=== PATIENT | female | born 1980 | race Caucasian/White ===

== ENCOUNTER 2018-02-22 11:55 | Emergency (ER) | payer OTHER ==
[~2018-02-22] VITALS: Ht 170.2 cm; Wt 90.7 kg
[2018-02-22 12:01] VITALS: BP 117/77
--- NOTE | 2018-02-22 12:27 | ED SKIN/ALLERGY COMPLAINT ---
History of Present Illness General Chief Complaint: Upper Extremity Problem Stated Complaint: PT POSSIBLE CELLULITIS ON FOREARM Source: patient Exam Limitations: no limitations Vital Signs & Intake/Output Vital Signs & Intake/Output Vital Signs Date Time Temp Pulse Resp B/P B/P Pulse O2 O2 Flow FiO2 Mean Ox Delivery Rate 02/22 1201 96.4 91 20 117/77 97 Room Air Allergies Coded Allergies: bee pollen (ITCHING 02/22/18) pineapple (ITCHING 02/22/18) Reconcile Medications Hydroxyzine Hydrochloride (Atarax) 25 MG TAB 1 TAB PO Q6P PRN ITCHING Prednisone 10 MG TABLET 1 TAB PO DAILY DERMATITIS THEN TAKE 3 TABS FOR 3 DAYS THEN TAKE 2 TABS FOR 3 DAYS THEN TAKE 1 TAB FOR 3 DAYS Sulfamethoxazole/Trimethoprim (Bactrim Ds Tablet) 800 MG-160 MG TABLET 1 TAB PO BID CELLULITIS Triage Note: PT TO ED C/O RASH TO RIGHT FOREARM. STARTED SUNDAY, WAS GIVEN KENALOG CREAM AND KEFLEX. STATES IT IS WORSE AND NOW BLISTERING. AFEBERILE. Triage Nurses Notes Reviewed? yes : No Patient currently breastfeeds: No HPI: Patient developed an itchy rash in her right arm on Sunday. Patient started Kenalog cream. The area then became reddened. Patient went to a walk in center and they put her on Keflex and told her to stop the Kenalog and put her on an antibiotic cream. This morning she woke up and the area was very red and now she had the rash on her left arm as well. There is no pain. It is itching. There are no fevers or chills. 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 none Influenza Vaccine: 09/04/11 Tetanus Vaccine: 11/24/12 Surgical History Surgical History: non-contributory Psychosocial History What is your primary language Slovak Tobacco Use: Never used ETOH Use: denies use Illicit Drug Use: denies illicit drug use Family History Hx Contributory? No Review of Systems Review of Systems Constitutional: Reports: no symptoms. Respiratory: Reports: no symptoms. Cardiovascular: Reports: no symptoms. GI: Reports: no symptoms. Musculoskeletal: Reports: see HPI. Skin: Reports: see HPI. Neurological/Psychological: Reports: no symptoms. Immunologic/Allergic: Reports: no symptoms. Physical Exam Physical Exam General Appearance: well developed/nourished, alert, awake, mild distress Eyes: Bilateral: PERRL, EOMI. Respiratory: normal breath sounds, chest non-tender, no respiratory distress, lungs clear Cardiovascular: regular rate/rhythm, normal peripheral pulses Neurologic/Psych: no motor/sensory deficits, awake, alert, oriented x 3, normal gait, normal mood/affect Skin: rash Skin Problem Location: upper extremities Skin Problem Character: linear, papules Lymphatic: NO AXIALLRY LAD Progress Differential Diagnosis: abscess/cellulitis, contact dermatitis Plan of Care: Current Medications Sig/Sweetie Start time Last Medication Dose Stop Time Status Admin Ceftriaxone Sodium 1,000 MG ONCE ONE 02/22 1230 UNVr (Rocephin) 02/22 1231 Prednisone 60 MG ONCE ONE 02/22 1230 UNVr 02/22 1231 Departure Departure Disposition: HOME OR SELF CARE Condition: Stable Clinical Impression Primary Impression: Contact dermatitis Secondary Impressions: Cellulitis Referrals: Cheryl Osorio DO (PCP/Family) Additional Instructions: CONTINUE THE KEFLEX AND ADD BACTRIM TWICE A DAY TAKE PREDNSONE PRESCRIBED RETURN IF SYMPTOMS WORSENOR FOR ANY CONCERNS TAKE ATARAX NEEDED FOR ITCHING. IT MAYMAKE YOU SLEEPY SO DONOTDRIVE AFTER TAKING IT. Departure Forms: Customer Survey General Discharge Information Prescriptions: Current Visit Scripts Prednisone 1 TAB PO DAILY #18 TAB THEN TAKE 3 TABS FOR 3 DAYS THEN TAKE 2 TABS FOR 3 DAYS THEN TAKE 1 TAB FOR 3 DAYS Hydroxyzine Hydrochloride (Atarax) 1 TAB PO Q6P PRN ITCHING #20 TAB Sulfamethoxazole/Trimethoprim (Bactrim Ds Tablet) 1 TAB PO BID #20 TAB
[2018-02-22] MEDS ORDERED: PREDNISONE10 M2 PO (12:36)
[2018-02-22] MEDS ORDERED: BACTRIM DS TAB1 EACH PO (12:36)
[2018-02-22] MEDS ORDERED: HYDROXYZINE HCL25 M2 PO (12:36)
== END 2018-02-22 12:56 ==
LOC: ERH 11:55
DX: L03.113 Cellulitis of right upper limb (principal)
CPT/HCPCS: 96374; J0696

== ENCOUNTER 2018-02-25 12:59 | Inpatient (IN) | payer OTHER ==
[~2018-02-25] VITALS: Ht 172.7 cm; Wt 90.7 kg
[~2018-02-25 12:59] MED LIST: BACTRIM DS TAB1 EACH PO; HYDROXYZINE HCL25 M2 PO; PREDNISONE10 M2 PO
--- NOTE | 2018-02-25 16:05 | ED SKIN/ALLERGY COMPLAINT ---
History of Present Illness General Chief Complaint: General Adult Stated Complaint: CELLULITES INFECTION, SEEN HERE 02/22 FOR SAME Source: patient, family, old records Exam Limitations: no limitations Vital Signs & Intake/Output Vital Signs & Intake/Output Vital Signs Date Time Temp Pulse Resp B/P B/P Pulse O2 O2 Flow FiO2 Mean Ox Delivery Rate 02/25 1857 98.9 79 18 122/72 98 Room Air 02/25 1310 97.4 96 16 144/89 97 Room Air Allergies Coded Allergies: bee pollen (ITCHING 02/22/18) pineapple (ITCHING 02/22/18) Reconcile Medications Hydroxyzine Hydrochloride (Atarax) 25 MG TAB 1 TAB PO Q6P PRN ITCHING Prednisone 10 MG TABLET 1 TAB PO DAILY DERMATITIS THEN TAKE 3 TABS FOR 3 DAYS THEN TAKE 2 TABS FOR 3 DAYS THEN TAKE 1 TAB FOR 3 DAYS Sulfamethoxazole/Trimethoprim (Bactrim Ds Tablet) 800 MG-160 MG TABLET 1 TAB PO BID CELLULITIS Triage Note: PT TO ED FOR EVAL OF CELLULITIS. WAS SEEN HERE FOR THE SAME THE OTHER DAY AND PLACED ON ABX. STATES THAT SHE FEELS WORSE THAN THAT DAY AND NOW HAS FEVERS AT HOME. TEMP IN TRIAGE 97.4. TOOK IBUPROFEN THIS AM. WAS PUT ON BACTRIM ON SUNDAY, WELL KEFLEX FROM SUNDAY, AND PREDNISONE TAPER AND ATARAX. Triage Nurses Notes Reviewed? yes Onset: Gradual Duration: day(s): Timing: recent history Severity: moderate Location: right arm : No Patient currently breastfeeds: No HPI: 37YO FEMALE presents to ED complaining of worsening skin infection. PAtient was seen and evaluated here a few days ago for a itchy rash of right arm. She was taking Keflex at that time. She was started on prednisone, Bactrim, hydroxyzine and instructed to return if symptoms were worsening. Patient also received 1 dose of IV antibiotics at that time. Patient states that her symptoms have been increasing, redness around skin rashes also increased. Patient reports this morning she woke up with sweats, fever 101.2F at home. Patient also reporting general malaise. 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 Patient does report that she was exposed to impetigo recently. She denies abdominal pain, vomiting, diarrhea. Past History Travel History Traveled to [place] past 21 day No Medical History Any Pertinent Medical History? none Tetanus Vaccine: 11/24/12 Surgical History Surgical History: non-contributory Psychosocial History What is your primary language Hebrew Tobacco Use: Never used Family History Hx Contributory? No Review of Systems Review of Systems Constitutional: Reports: see HPI. EENTM: Reports: no symptoms. Respiratory: Reports: no symptoms. Cardiovascular: Reports: no symptoms. GI: Reports: no symptoms. Genitourinary: Reports: no symptoms. Musculoskeletal: Reports: no symptoms. Skin: Reports: see HPI. Neurological/Psychological: Reports: no symptoms. Hematologic/Endocrine: Reports: no symptoms. Immunologic/Allergic: Reports: no symptoms. All Other Systems: Reviewed and Negative Physical Exam Physical Exam General Appearance: well developed/nourished, no apparent distress, alert, awake Head: atraumatic, normal appearance Eyes: Bilateral: normal appearance. Ears, Nose, Throat: hearing grossly normal Neck: normal inspection, supple, full range of motion Respiratory: normal breath sounds, no respiratory distress, lungs clear Cardiovascular: regular rate/rhythm Back: normal inspection, normal range of motion Extremities: right arm: erythema to forearm and upper arm with oozing blisters/ bullae +warmth, slight tenderness Neurologic/Psych: awake, alert, oriented x 3 Skin: see right arm rash above Progress Differential Diagnosis: abscess/cellulitis, allergic reaction, contact dermatitis, drug reaction, erythema multiforme, shingles, toxic shock syndrome, urticaria Plan of Care: Orders Procedure Date/time Status Saline Lock 02/25 160 Active BLOOD CULTURE 02/25 160 Active LACTIC ACID 02/25 160 Complete COMPREHENSIVE METABOLIC PANEL 02/25 1605 Complete CBC WITHOUT DIFFERENTIAL 02/25 1605 Complete Current Medications Sig/Sweetie Start time Last Medication Dose Stop Time Status Admin Clindamycin 300 MG ONCE ONE 02/25 193 CAN (Cleocin) 02/25 1931 Clindamycin 300 MG ONCE ONE 02/25 193 AC (Cleocin) 02/25 1959 Dextrose/Water 50 ML (D5W) Laboratory Tests 02/25/18 1905: Lactic Acid Cancelled 02/25/18 1715: Anion Gap 15, Estimated GFR > 60, BUN/Creatinine Ratio 21.4, Glucose 112 H, Lactic Acid 1.4, Calcium 10.4 H, Total Bilirubin 0.5, AST 17, ALT 44, Alkaline Phosphatase 92, Total Protein 8.8 H, Albumin 5.1 H, Globulin 3.7, Albumin/ Globulin Ratio 1.4, CBC w Diff NO MAN DIFF REQ, RBC 5.64 H, MCV 75.5 L, MCH 25.0 L, MCHC 33.2, RDW 14.9 H, MPV 8.1, Gran % 85.9 H, Lymphocytes % 12.4 L, Monocytes % 1.1 L, Eosinophils % 0.5, Basophils % 0.1, Absolute Granulocytes 8.9 H, Absolute Lymphocytes 1.3, Absolute Monocytes 0.1, Absolute Eosinophils 0 , Absolute Basophils 0 Microbiology 02/25 1818 BLOOD: Blood Culture - RECD 02/25 1715 BLOOD: Blood Culture - RECD Dr. Romero present seen and evaluated the patient. Given patient's worsening rash despite use of steroids and antibiotics she requires inpatient admission for IV antibiotics or other medication. Dermatology consult is warranted given her abnormal rash. Case management recommended for admission. Dr. Reyes saw evaluated the patient. Departure Departure Disposition: STILL A PATIENT Condition: Stable Clinical Impression Primary Impression: Cellulitis Qualifiers: Site of cellulitis: extremity Site of cellulitis of extremity: upper extremity Laterality: right Qualified Code: L03.113 - Cellulitis of right upper limb Referrals: Cheryl Osorio DO (PCP/Family) Departure Forms: Customer Survey General Discharge Information Admission Note Spoke With: Florentin Reyes MD Documentation of Exam: Documentation of any treatments & extenuating circumstances including Concerns Regarding Discharge (functional status, medication knowledge or non-compliance, living conditions, etc.) that warrant an admission rather than observation: [ Cellulitis failed outpatient antibiotic treatment requiring possible IV antibiotics, dermatology consult, possible infectious disease consult, premature discharge medically unsafe]
[2018-02-25 17:26] LABS: ABSOLUTE BASOPHIL COUNT 0 /CUMM (0.0-0.2); ABSOLUTE EOSINOPHIL COUNT 0 /CUMM (0.0-0.7); ABSOLUTE GRANULOCYTE CT 8.9 /CUMM (1.4-6.5); ABSOLUTE LYMPH COUNT 1.3 /CUMM (1.2-3.4); ABSOLUTE MONOCYTE COUNT 0.1 /CUMM (0.10-0.60); BASOPHIL % 0.1 % (0.0-2.0); EOSINOPHIL % 0.5 % (0-5); HEMATOCRIT 42.6 % (37-47); MEAN CORPUSCULAR HGB CONC 33.2 G/DL (33.0-37.0); MEAN CORPUSCULAR VOLUME 75.5 FL (81.0-99.0); MEAN PLATELET VOLUME 8.1 FL (7.4-10.4); PLATELET COUNT 394 /CUMM (130-400); RBC DISTRIBUTION WIDTH 14.9 % (11.5-14.5); RED BLOOD CELL CT 5.64 /CUMM (4.20-5.40); WHITE BLOOD CELL COUNT 10.4 /CUMM (4.8-10.8)
[2018-02-25 17:29] LABS: GRANULOCYTE % 85.9 % (42.2-75.2)
--- NOTE | 2018-02-25 20:07 | History & Physical ---
Leopoldo Shannon 02/25/18 2006: General Information and HPI History of Present Illness: Ms. Wright is a 37-year-old female with a PMH of rosacea who presents to the ED with worsening cellulitis. Patient reports one week ago Sunday she noticed a pruritic rash on her right and left forearm. She used steroid cream without relief. By the following her right arm swelling and erythema worsened, blisters formed on her right forearm which prompted her to go to a walk-in clinic where she was prescribed cephalexin and mupirocin. She used ibuprofen for pain without relief. On Sunday there was no improvement in appearance so she went to the ED where she was prescribed Bactrim, hydroxyzine, steroids and given a dose of ceftriaxone. Today she reports she had a fever and recorded a temperature of 101. She was also fatigued and had a SEPULVEDA. She reports her son was recently treated with contact dermatitis. At home she has 2 dogs and 1 cat that are all up to date with severe vaccinations. 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 She denies recent travel, family history of autoimmune diseases, nausea, vomiting, paresthesias, numbness, urinary or bowel symptoms. Allergies/Medications Allergies: Coded Allergies: bee pollen (ITCHING 02/22/18) pineapple (ITCHING 02/22/18) Home Med list Hydroxyzine Hydrochloride (Atarax) 25 MG TAB 1 TAB PO Q6P PRN ITCHING Prednisone 10 MG TABLET 1 TAB PO DAILY DERMATITIS THEN TAKE 3 TABS FOR 3 DAYS THEN TAKE 2 TABS FOR 3 DAYS THEN TAKE 1 TAB FOR 3 DAYS Sulfamethoxazole/Trimethoprim (Bactrim Ds Tablet) 800 MG-160 MG TABLET 1 TAB PO BID CELLULITIS Past History Travel History Traveled to [place] past 21 day No Medical History Tetanus Vaccine: 11/24/12 Surgical History Surgical History: non-contributory Review of Systems Review of Systems Constitutional: Reports: see HPI. Exam & Diagnostic Data Last 24 Hrs of Vital Signs/I&O Vital Signs Date Time Temp Pulse Resp B/P B/P Pulse O2 O2 Flow FiO2 Mean Ox Delivery Rate 02/25 1857 98.9 79 18 122/72 98 Room Air 02/25 1310 97.4 96 16 144/89 97 Room Air Physical Exam General Appearance Alert, Oriented X3, Cooperative, No Acute Distress, facial flushing Skin left forearm erythematous macular lesion, right arm warmth, skin erythema and ruptured bulla without drainage HEENT Atraumatic, PERRLA, EOMI Neck Supple, No LAD Cardiovascular Regular Rate, Normal S1, Normal S2, No Murmurs Lungs Clear to Auscultation, Normal Air Movement Abdomen Normal Bowel Sounds, Soft, No Tenderness Extremities No Edema, Normal Pulses, No Tenderness/Swelling Last 24 Hrs of Labs/Justen: Laboratory Tests 02/25/18 1905: Lactic Acid Cancelled 02/25/18 1715: Anion Gap 15, Estimated GFR > 60, BUN/Creatinine Ratio 21.4, Glucose 112 H, Lactic Acid 1.4, Calcium 10.4 H, Total Bilirubin 0.5, AST 17, ALT 44, Alkaline Phosphatase 92, Total Protein 8.8 H, Albumin 5.1 H, Globulin 3.7, Albumin/ Globulin Ratio 1.4, CBC w Diff NO MAN DIFF REQ, RBC 5.64 H, MCV 75.5 L, MCH 25.0 L, MCHC 33.2, RDW 14.9 H, MPV 8.1, Gran % 85.9 H, Lymphocytes % 12.4 L, Monocytes % 1.1 L, Eosinophils % 0.5, Basophils % 0.1, Absolute Granulocytes 8.9 H, Absolute Lymphocytes 1.3, Absolute Monocytes 0.1, Absolute Eosinophils 0 , Absolute Basophils 0 Microbiology 02/25 1818 BLOOD: Blood Culture - RECD 02/25 1715 BLOOD: Blood Culture - RECD Assessment/Plan Assessment: Ms. Wright is a 37-year-old female with a PMH of rosacea who presents to the ED with worsening cellulitis. Problem list: Right arm cellulitis vs pemphigoid bullous disease vs VZV vs contact dermatitis Plan: Admit to general med for further evaluation and management IV cefazolin for strep coverage IV Vancomycin for MRSA coverage Benadryl for pruritus Blood cultures 2 NS IVF Avoid NSAIDs and steroids Consider VZV PCR ID consult Derm consult Diet: Regular DVT ppx: Enoxaparin Code: Full As Ranked By This Provider Problem List: 1. Cellulitis Qualifiers Site of cellulitis: extremity Site of cellulitis of extremity: upper extremity Laterality: right Qualified Code: L03.113 - Cellulitis of right upper limb Core Measures/Misc (07/22) Acute Coronary Syndrome ACS Diagnosis: No Congestive Heart Failure Congestive Heart Failure Diagnosis No Cerebrovascular Accident CVA/TIA Diagnosis: No VTE (View Protocol) VTE Risk Factors Acute Medical Illness No Mechanical VTE Prophylaxis d/t N/A MechProphylax Ordered No VTE Pharm Prophylaxis d/t NA PharmProphylax ordered Sepsis (View protocol) Sepsis Present: No Florentin Reyes 02/26/18 0341: Attending MD Review Statement Attending Statement Attending MD Statement: examined this patient, discuss w/resident/PA/SEARCH AND RESCUE OFFICER, agreed w/resident/PA/SEARCH AND RESCUE OFFICER, discussed with family, reviewed EMR data (avail), reviewed images, amended to note Attending Assessment/Plan: CC: Rash on right arm PMH: none Patient came to ER for nonhealing a rash on right upper extremity on medial aspect. The rash started approximately 9 days back, gradually worsening. She was seen at urgent care and was prescribed Keflex and mupirocin ointment. She also used steroid cream without relief. As her lesion worsened she came to ER on , then her Keflex was continued, she was started on Bactrim and prednisone. She has been compliant with all this medications and rash was not getting better so she came to ER. She has tingly sensation on the rash, soreness or pain but no worsening. She had fever of 101 today at home. She also complains of mild headache and fatigue but otherwise complete ROS unremarkable. She does not have similar rashes in the mouth, other body parts are in genital area. 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 No recent change in her daily routine including detergent, different clothes or ornaments. She has been using ibuprofen for headache once in a while. Most recent use within the last 15 days and today. Vitals: Temperature 98.9, pulse 96, RR 16, blood pressure 144/89, saturating 97% on room air. On exam: A O 3, cooperative, no acute distress, neck supple, JVD normal, no lymphadenopathy, mucosa moist, no focal neurological deficit, no dependent edema , CVS: S1-S2, RRR. RS: Clear to auscultate bilaterally. Abdomen: Soft, NT, ND, bowel sounds present. Right upper extremity has bolus lesions 2 in number on medial aspect one on the forearm is approximately 8 cm in diameter, flaccid bullae, mild redness, pain on touch and warmth but no obvious fluctuation. A smaller 3 cm diameter lesion on the arm area with similar features. She also has smaller rash on left antecubital fossa which is maculopapular Assessment and plan Patient has bullous skin lesions since last 8-9 days, gradually worsening, medial aspect of the right forearm. Given the bullous lesion it has a wide differential, herpes zoster, fixed drug reaction, autoimmune reactions with bullous pemphigoid or pemphigus vulgaris could be few possibilities. As patient is not getting better with empiric treatment with antibiotics, steroids she would benefit from skin biopsy. We will cover empirically with antibiotics for now for secondary infection. Will get ID in walled for possibility of herpes zoster, possibly bullous fluid PCR could be sent. We will get dermatology opinion + Bullous skin rash on right upper extremity - Admit to general medicine - Continue IV antibiotics - ID consult - Term consult - d/c steroids - Avoid NSAIDs - Supportive care with pain management and Claudia Madrid 02/26/18 0359: Resident Review Statement Resident Statement: examined this patient, discussed with nutrition internship, agreed with nutrition internship, discussed with family, amended to note Other Findings: 37-year-old lady with past medical history of gestational diabetes and rosacea came to the hospital with chief complaint of right forearm pain, blisters redness and swelling and fever. Patient reported that she noticed a small rash in her right forearm about 9 days ago which she treated with topical steroids which didn't get better and developed small blisters initially went to walk-in and prescribed Keflex but is still the redness and the blister did not improve and came to [facility] ED on last Sunday and at that point she was prescribed Bactrim and prednisone taper in addition to the Keflex. According to the patient to swelling and redness and blisters got worse and today before coming to the hospital she had a fever of 101 and feeling fatigued. Patient reports due to taking multiple antibiotics she has low appetite and mild nausea but no vomiting, diarrhea, constipation, shortness of breath, pain. She reports that she has another rash on the left antecubital area 2 x 2 centimeters and mildly itchy which did not change in color or size since 9 days ago.She denies recent travel, contact with any poison silvana. 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 She also reports taking Motrin for couple of days as well. No genital or Or ulcers. Labs in ED where remarkable for HCO3 of 21, glucose 112, calcium 10.4, RBC 5.64, MCV 75.5, WBC within normal limits. Physical exam she is alert and oriented Rosacea on the face and ears Chest clear bilaterally Heart S1 is normal, no murmurs Abdomen nontender No pedal edema Skin is notable for extensive Loyal colored patches with multiple blisters on right left arm and forearm, one small 2 x 2 centimeters darker red patch on the left antecubital area Patient has received IV clindamycin in the ED with Benadryl Assessment Redness and swelling with blister on the skin on the right arm and forearm( DDX, cellulitis with MRSA, pemphigoid spectrum diseases, VZV, Other autoimmune diseases,drug reaction, allergic reaction to bite) History of rosacea Plan Admit to general medicine floor Liang the margins of the lesion Blood cultures 2 and watch for fevers IV Benadryl for itching when necessary We will give 1 dose of vancomycin and also continue the patient on IV cefazolin No NSAIDs or steroids ID consultation in the morning VZV PCR is recommended if approved by ID One bag of normal saline for IV hydration Full code, DVT prophylaxis is mechanical and sub Q Lovenox, Tylenol for pain, regular diet
[2018-02-25 22:45] VITALS: BP 118/80
--- NOTE | 2018-02-26 03:43 | Admission Certification ---
Admission Certification Certification Statement - As attending physician, I certify that at the time of - admission, based on clinical presentation, severity of - symptoms, need for further diagnostic testing and - therapeutic interventions, and risk of adverse outcomes - without in-hospital treatment, in my clinical assessment, - this patient requires an acute hospital stay for a minimum - of two nights or longer. I have also considered psychsocial - factors such as support system, advanced age, financial - issues, cognitive issues, and failed out-patient treatments, - past re-admission history, safety of patient, and lack of - compliance as applicable. Specific rationale supporting this admission is: Bullous skin lesion
[2018-02-26 07:22] VITALS: BP 114/67
--- NOTE | 2018-02-26 08:04 | PN- Housestaff ---
Jessie Morton 02/26/18 0804: Subjective Follow-up For: Right arm skin rash with bullae Subjective: The patient was seen and examined. Her skin rash with blisters occured approximately 10 days prior to admission. Has visited ED 2 times prior to presentation and was given prednuisone and ABs. Review of Systems Constitutional: Denies: chills, diaphoresis, fever, malaise, weakness, unexplained weight loss. Objective Last 24 Hrs of Vital Signs/I&O Vital Signs Date Time Temp Pulse Resp B/P B/P Pulse O2 O2 Flow FiO2 Mean Ox Delivery Rate 02/26 0722 98.0 76 20 114/67 99 Room Air 02/25 2245 98.2 77 18 118/80 96 Room Air 02/25 2148 98.2 68 18 112/68 97 Room Air 02/25 1857 98.9 79 18 122/72 98 Room Air Intake & Output 02/26 1600 02/26 0800 02/26 0000 Intake Total 240 1000 Output Total Balance 240 1000 Intake, IV 1000 Intake, Oral 240 Patient 200 lb Weight Weight Reported by Patient Measurement Method Physical Exam General Appearance: Alert, Oriented X3, Cooperative, No Acute Distress Other Physical Findings: Skin: 5 cm left forearm erythematous macular lesion, right arm warmth, skin erythema and ruptured bulla without drainage approx 15 cm, area boland been marked o admission HEENT Atraumatic, PERRLA, EOMI Neck Supple, No LAD Cardiovascular Regular Rate, Normal S1, Normal S2, No Murmurs Lungs Clear to Auscultation, Normal Air Movement Abdomen Normal Bowel Sounds, Soft, No Tenderness Extremities No Edema, Normal Pulses, No Tenderness/Swelling Current Medications: Current Medications Sig/Sweetie Start time Last Medication Dose Route Stop Time Status Admin Acetaminophen 0 .STK-MED ONE 02/26 2224 DC PO Acetaminophen 650 MG Q6P PRN 02/25 2115 AC PO Acetaminophen 0 .STK-MED ONE 02/25 2103 DC PO Ampicillin Sodium/ 1,500 MG Q6 02/26 1200 AC 02/26 Sulbactam Sodium IV 1236 Sodium Chloride 100 ML Cefazolin Sodium 1,000 MG IQ8 02/26 0000 DC 02/26 IV 0830 Clindamycin 300 MG ONCE ONE 02/25 1930 CAN IV 02/25 193 Clindamycin 300 MG ONCE ONE 02/25 1930 DC 02/25 Dextrose/Water 50 ML IV 02/25 Clobetasol Propionate 1 HIRAL BID 02/26 1317 UNVr TOP Diphenhydramine HCl 50 MG Q6P PRN 02/25 2300 AC 02/26 IV 0559 Diphenhydramine HCl 0 .STK-MED ONE 02/26 1916 DC .ROUTE Diphenhydramine HCl 25 MG ONCE ONE 02/25 1900 DC 02/25 IV 02/25 Enoxaparin Sodium 40 MG DAILY 02/26 09 DC SC Sodium Chloride 1,000 ML BOLUS ONE 02/25 2015 DC 02/25 IV 02/25 Vancomycin HCl 1,000 MG ONCE ONE 02/25 2300 DC 02/26 Sodium Chloride 250 ML IV 02/25 2359 0107 Last 24 Hrs of Lab/Justen Results Last 24 Hrs of Labs/Mics: Laboratory Tests 02/26/18 0748: Anion Gap 11, Estimated GFR > 60, BUN/Creatinine Ratio 17.5, CBC w Diff NO MAN DIFF REQ, RBC 4.67, MCV 76.0 L, MCH 25.1 L, MCHC 33.0, RDW 14.6 H, MPV 8.0, Gran % 59.4, Lymphocytes % 27.3, Monocytes % 6.8, Eosinophils % 5.9 H, Basophils % 0.6, Absolute Granulocytes 5.4, Absolute Lymphocytes 2.5, Absolute Monocytes 0.6, Absolute Eosinophils 0.5, Absolute Basophils 0.1 02/26/18 0600: Lyme Disease Antibody Pending 02/25/18 1905: Lactic Acid Cancelled 02/25/18 1715: Anion Gap 15, Estimated GFR > 60, BUN/Creatinine Ratio 21.4, Glucose 112 H, Lactic Acid 1.4, Calcium 10.4 H, Total Bilirubin 0.5, AST 17, ALT 44, Alkaline Phosphatase 92, Total Protein 8.8 H, Albumin 5.1 H, Globulin 3.7, Albumin/ Globulin Ratio 1.4, CBC w Diff NO MAN DIFF REQ, RBC 5.64 H, MCV 75.5 L, MCH 25.0 L, MCHC 33.2, RDW 14.9 H, MPV 8.1, Gran % 85.9 H, Lymphocytes % 12.4 L, Monocytes % 1.1 L, Eosinophils % 0.5, Basophils % 0.1, Absolute Granulocytes 8.9 H, Absolute Lymphocytes 1.3, Absolute Monocytes 0.1, Absolute Eosinophils 0 , Absolute Basophils 0 Microbiology 02/25 1818 BLOOD: Blood Culture - RES 02/25 1715 BLOOD: Blood Culture - RES Assessment/Plan Assessment: This is a 37-year-old lady with past medical history of gestational diabetes and rosacea came to the hospital with chief complaint of right forearm pain, blisters redness and swelling and fever. Problem list: #Skin lesion with bullae; likely allergic reaction(contact dermatitis), other DDX include: cellulitis with MRSA, pemphigoid spectrum diseases, VZV, lyme(less likely) Plan * Follow Blood cultures 2 and watch for fevers * IV Benadryl for itching when necessary * 1 dose of vancomycin was given in the ED the patient was started on cefazolin. ID recommends to change antibiotic to Unasyn. * No NSAIDs or steroids * VZV PCR is recommended if approved by ID * Dermatology suggests that this is likely an allergic reaction/ contact dermatitis reaction recommending clobetasol twice a day and a skin biopsy * Call surgical consult for skin biopsy * DVT prophylaxis with alps; patient preference and also she is probably going to be scheduled for biopsy * Patient is full code Problem List: 1. Contact dermatitis Pain Ratin Pain Location: NA Pain Goal: Remain pain free Pain Plan: NA Tomorrow's Labs & Rationales: Fransico Teague MD 02/26/18 1259: Attending MD Review Statement Attending Statement Attending MD Statement: examined this patient, discuss w/resident/PA/VICE PRESIDENT OF NEWS, agreed w/resident/PA/VICE PRESIDENT OF NEWS, discussed with family, reviewed EMR data (avail), discussed with nursing, discussed with case mgmt, amended to note Attending Assessment/Plan: The patient was seen and discussed with house staff, nursing, case management, and family (). Dr. Zambrano examined in our presence. Still unclear if rash is infection vs inflammatory process. May represent contact dermatitis. As per ID will change Abx to Unasyn. Check Lyme titer. Dermatology input requested.
[2018-02-26 08:42] LABS: ABSOLUTE GRANULOCYTE CT 5.4 /CUMM (1.4-6.5); ABSOLUTE LYMPH COUNT 2.5 /CUMM (1.2-3.4); ABSOLUTE MONOCYTE COUNT 0.6 /CUMM (0.10-0.60); WHITE BLOOD CELL COUNT 9.1 /CUMM (4.8-10.8)
[2018-02-26 09:06] LABS: ABSOLUTE BASOPHIL COUNT 0.1 /CUMM (0.0-0.2); ABSOLUTE EOSINOPHIL COUNT 0.5 /CUMM (0.0-0.7); BASOPHIL % 0.6 % (0.0-2.0); EOSINOPHIL % 5.9 % (0-5); GRANULOCYTE % 59.4 % (42.2-75.2); MEAN CORPUSCULAR HGB 25.1 PG (27.0-31.0); PLATELET COUNT 307 /CUMM (130-400); RBC DISTRIBUTION WIDTH 14.6 % (11.5-14.5); RED BLOOD CELL CT 4.67 /CUMM (4.20-5.40)
[2018-02-26 09:09] LABS: HEMATOCRIT 35.5 % (37-47)
[2018-02-26 14:07] VITALS: BP 120/70
--- NOTE | 2018-02-26 15:58 | Procedure ---
Minor Surgical Procedure Note Date of Procedure: 02/26/18 Procedure Note: PUNCH BIOPSY WAS REQUESTED BY MEDICAL TEAM FOR RASH/BLISTERS ON PT RIGHT ARM. AREA WAS PREPPED WITH CHLORAPREP AND DRAPPED WITH STERILE TOWELS IN STERILE FASHION. 3CC 1% LIDOCAINE WITH EPI WAS INJECTED INTO RIGHT LOWER EXTREMITY, ONCE AREA WAS NUMB PUNCH BIPSY WAS PERFORMED AND EXCISED SKIN WAS PLACED IN SPECIMEN CUP AND SENT TO PATHOLOGY. PRESSURE WAS HELD TO THE OP SITE UNTIL HEMOSTASIS WAS ACHIEVED. CLEAN STERILE DRESSING WAS APPLIED. PT TOLERATED THE PROCEDURE WELL.
[2018-02-26 17:00] VITALS: BP 116/68
[2018-02-26 21:38] VITALS: BP 122/80
[2018-02-27 06:46] VITALS: BP 98/67
--- NOTE | 2018-02-27 08:42 | PN- Housestaff ---
See Addendum Amos RODRIGUEZ,Jerod 02/27/18 0842: Subjective Follow-up For: right arm rash Complaints: new generalized rash over her b/l upper limbs Subjective: I followed up the patient today. She is resting comfortably in her bed, not in distress, but complaints of a new generalized erythema over her b/l upper extermities. Her itching is controlled with IV Benadryl. Abx switched to IV Unasyn yesterday. No fever, chills, but no relief of rash either. No nursing issues reported to me overnight. VSS otherwise. Review of Systems Constitutional: Reports: see HPI. Objective Last 24 Hrs of Vital Signs/I&O Vital Signs Date Time Temp Pulse Resp B/P B/P Pulse O2 O2 Flow FiO2 Mean Ox Delivery Rate 02/27 1429 97.8 88 20 122/67 98 Room Air 02/27 0646 98.2 79 20 98/67 97 02/26 2138 98.9 95 18 122/80 95 Room Air 02/26 1700 98.2 90 24 116/68 99 Room Air Intake & Output 02/27 1600 02/27 0800 02/27 0000 Intake Total 740 350 350 Output Total Balance 740 350 350 Intake, IV 230 Intake, Oral 740 120 350 Number 0 Bowel Movements Physical Exam General Appearance: Alert, Oriented X3, Cooperative, No Acute Distress Other Physical Findings: Skin: - Lesion over inner/medial aspect of Right forearm/elbow area: bulla has ruptured, with surrounding erythema present, initial erythema has spread beyond the margin made from surgical pen initially in the ED. Dressed. - Lesion over the left anticubital area: small area abt <1 in sq erythema with a bleb ~2x2 mm over the medial aspect of the lesion. - New rash over b/l extremities, which appears to spare the lesion over the Left anticubital area by ~1 inch. Not itchy, no ulceration or induration- generalized erythema. 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 HEENT Atraumatic, PERRLA, EOMI Neck Supple, No LAD Cardiovascular Regular Rate, Normal S1, Normal S2, No Murmurs Lungs Clear to Auscultation, Normal Air Movement Abdomen Normal Bowel Sounds, Soft, No Tenderness Extremities No Edema, Normal Pulses, No Tenderness/Swelling Current Medications: Current Medications Sig/Sweetie Start time Last Medication Dose Route Stop Time Status Admin Acetaminophen 650 MG .STK-MED ONE 02/27 0136 DC PO 02/27 0137 Acetaminophen 650 MG .STK-MED ONE 02/26 1635 DC PO 02/26 1636 Acetaminophen 650 MG Q6P PRN 02/25 2115 AC 02/27 PO 0138 Ampicillin Sodium/ 1,500 MG Q6 02/26 1200 AC 02/27 Sulbactam Sodium IV 1200 Sodium Chloride 100 ML Clobetasol Propionate 1 HIRAL BID 02/26 1317 AC 02/27 TOP 0851 Diphenhydramine HCl 50 MG Q6P PRN 02/25 2300 AC 02/27 IV 1305 Lactobacillus 1 CAP BID 02/27 1329 AC 02/27 Acidophilus PO 1500 Nystatin 1 HIRAL BID 02/27 1338 AC 02/27 TOP 1538 Oxycodone/ 1 TAB Q6P PRN 02/27 0845 AC Acetaminophen PO Patient Medication 1 ED ONE ONE 02/27 1100 SC 02/27 Teaching ED 02/27 1101 1100 Patient Medication 1 ED ONE ONE 02/26 1700 SC Teaching ED 02/26 1701 Last 24 Hrs of Lab/Justen Results Last 24 Hrs of Labs/Mics: Laboratory Tests 02/27/18 0730: Anion Gap 12, Estimated GFR > 60, BUN/Creatinine Ratio 15.7, CBC w Diff NO MAN DIFF REQ, RBC 4.65, MCV 75.7 L, MCH 25.4 L, MCHC 33.6, RDW 14.5, MPV 7.8, Gran % 76.1 H, Lymphocytes % 12.1 L, Monocytes % 5.9, Eosinophils % 5.5 H, Basophils % 0.4, Absolute Granulocytes 7.1 H, Absolute Lymphocytes 1.1 L, Absolute Monocytes 0.5, Absolute Eosinophils 0.5, Absolute Basophils 0 Assessment/Plan Assessment: 37-year-old lady with past medical history of gestational diabetes and rosacea came to the hospital with chief complaint of right forearm pain, blisters redness and swelling and fever. She had visited urgent care and then ED for the same complaint in the last week. She was [facility], and later visited ED who prescribed her antibiotics. She was not getting any better which brought her to the ED and got admitted. She has received IV anx so far, and yesterday underwent a punch biopsy of the lesiuon by the surgical team. She has a new rash all over her upper extremities. Problem list: #Skin lesion with bullae; likely allergic reaction(contact dermatitis), other DDX include: cellulitis, pemphigoid spectrum diseases, VZV, lyme(less likely) Plan * Continue gen med admission while closely following skin changes and vitals. * Follow Blood cultures 2 and watch for fever * continue IV abx (CTX and Flagyl) but if still febrile re-send cultures and start Ceftazidime as the initial culture results are GNR, pending full report * IV Benadryl for itching when necessary, helping * 1 dose of vancomycin was given in the ED the patient was started on cefazolin. ID recommended to change antibiotic to Unasyn. * VZV PCR is recommended if approved by ID * Dermatology consult placed again, discussed with Dr Jaime. He suggested that this is likely an allergic reaction/ contact dermatitis reaction and had recommended clobetasol twice a day which was started yesterday * Wait for skin biopsy results, try getting prelim report if possible * DVT prophylaxis with alps * Patient is full code Problem List: 1. Cellulitis 2. Contact dermatitis Pain Ratin Pain Location: headache 2/10 constant Pain Goal: Pain 4 or less Pain Plan: prn Tomorrow's Labs & Rationales: CBC, BEP Fransico Arrieta MD 02/27/181927: Attending MD Review Statement Attending Statement Attending MD Statement: examined this patient, discuss w/resident/PA/FOOD EQUIPMENT SERVICE TECHNICIAN, agreed w/resident/PA/FOOD EQUIPMENT SERVICE TECHNICIAN, discussed with family, reviewed EMR data (avail), discussed with nursing, discussed with case mgmt, amended to note Attending Assessment/Plan: The patient continues to have bullous rash on UE (now bullae have burst). New more confluent rash on shoulders that is non-pruritic and non-tender. On Unasyn. No fever. Spoke with ID, Dermatology and Pathology. Both ID and Derm will re- evaluate in morning and preliminary biopsy should be reviewed in morning by Pathology. Will continue Unasyn at present pending above. Note the patient continues with some eosinophilia suggesting allergy/drug reaction?
[2018-02-27 08:45] LABS: ABSOLUTE BASOPHIL COUNT 0 /CUMM (0.0-0.2); ABSOLUTE EOSINOPHIL COUNT 0.5 /CUMM (0.0-0.7); ABSOLUTE GRANULOCYTE CT 7.1 /CUMM (1.4-6.5); ABSOLUTE LYMPH COUNT 1.1 /CUMM (1.2-3.4); ABSOLUTE MONOCYTE COUNT 0.5 /CUMM (0.10-0.60); BASOPHIL % 0.4 % (0.0-2.0); EOSINOPHIL % 5.5 % (0-5); GRANULOCYTE % 76.1 % (42.2-75.2); HEMATOCRIT 35.2 % (37-47); MEAN CORPUSCULAR HGB 25.4 PG (27.0-31.0); MEAN CORPUSCULAR HGB CONC 33.6 G/DL (33.0-37.0); MEAN CORPUSCULAR VOLUME 75.7 FL (81.0-99.0); MEAN PLATELET VOLUME 7.8 FL (7.4-10.4); PLATELET COUNT 274 /CUMM (130-400); RBC DISTRIBUTION WIDTH 14.5 % (11.5-14.5); RED BLOOD CELL CT 4.65 /CUMM (4.20-5.40); WHITE BLOOD CELL COUNT 9.4 /CUMM (4.8-10.8)
[2018-02-27 14:29] VITALS: BP 122/67
[2018-02-27 22:34] VITALS: BP 142/88
[2018-02-28 06:30] VITALS: BP 120/85
--- NOTE | 2018-02-28 07:43 | PN- Housestaff ---
Amos RODRIGUEZ,Jerod 02/28/18 0742: Subjective Follow-up For: right arm rash, failure of outpatient steroid and abx therapy Complaints: rash is better today Subjective: I followed up the patient today. She is resting comfortably in her bed, not in distress, and mentions that her rash is better today. [employer] Humanities Teacher at bedside too, who agreed witht he findings and discussed the case with us (patient and me ). She is still on IV Unasyn, IV Benadryl, and topical Clobetasol. No fever, chills , and her headache is much controlled now. No nursing issues reported to me overnight. VSS otherwise. Review of Systems Constitutional: Reports: see HPI. Objective Last 24 Hrs of Vital Signs/I&O Vital Signs Date Time Temp Pulse Resp B/P B/P Pulse O2 O2 Flow FiO2 Mean Ox Delivery Rate 02/27 2234 98.3 71 18 142/88 98 Room Air 02/27 1429 97.8 88 20 122/67 98 Room Air Intake & Output 02/28 0800 02/28 0000 02/27 1600 Intake Total 700 730 740 Output Total Balance 700 730 740 Intake, IV 220 250 Intake, Oral 480 480 740 Number 0 0 0 Bowel Movements Physical Exam General Appearance: Alert, Oriented X3, Cooperative, No Acute Distress, obese Other Physical Findings: Skin: - Lesion over inner/medial aspect of Right forearm/elbow area: lesion is much better today, rupured bulla is drying up, no oozing, surrounding erythema is also receding compared to yesterday, less itchy; total area of erytema is ~20x15 cm; Dressed. - Lesion over the left anticubital area: small area abt <1 in sq erythema with a bleb ~2x2 mm over the medial aspect of the lesion. Better today. Possile "id" lesion. - yesterday's new generalized rash over b/l extremities, appears better and subsiding. 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 HEENT Atraumatic, PERRLA, EOMI Neck Supple, No LAD Cardiovascular Regular Rate, Normal S1, Normal S2, No Murmurs Lungs Clear to Auscultation, Normal Air Movement Abdomen Normal Bowel Sounds, Soft, No Tenderness Extremities No Edema, Normal Pulses, No Tenderness/Swelling Current Medications: Current Medications Sig/Sweetie Start time Last Medication Dose Route Stop Time Status Admin Acetaminophen 650 MG .STK-MED ONE 02/27 1804 DC PO 02/27 180 Acetaminophen 650 MG Q6P PRN 02/25 2115 AC 02/27 PO 1819 Ampicillin Sodium/ 1,500 MG Q6 02/26 1200 AC 02/28 Sulbactam Sodium IV 0619 Sodium Chloride 100 ML Clobetasol Propionate 1 HIRAL BID 02/26 1317 AC 02/28 TOP 0734 Diphenhydramine HCl 50 MG Q6P PRN 02/25 2300 AC 02/28 IV 0331 Lactobacillus 1 CAP BID 02/27 1329 AC 02/27 Acidophilus PO 204 Nystatin 1 HIRAL BID 02/27 1338 AC 02/27 TOP 204 Oxycodone/ 1 TAB Q6P PRN 02/27 0845 AC Acetaminophen PO Patient Medication 1 ED ONE ONE 02/27 1100 DC 02/27 Teaching ED 02/27 1101 1100 Last 24 Hrs of Lab/Justen Results Last 24 Hrs of Labs/Mics: Laboratory Tests 02/28/18 0705: Anion Gap 10, Estimated GFR > 60, BUN/Creatinine Ratio 18.6, CBC w Diff NO MAN DIFF REQ, RBC 4.78, MCV 76.1 L, MCH 25.1 L, MCHC 33.0, RDW 14.5, MPV 7.7, Gran % 67.1, Lymphocytes % 19.7 L, Monocytes % 6.0, Eosinophils % 6.8 H, Basophils % 0.4, Absolute Granulocytes 6.0, Absolute Lymphocytes 1.8, Absolute Monocytes 0.5, Absolute Eosinophils 0.6, Absolute Basophils 0 Assessment/Plan Assessment: 37-year-old lady with past medical history of gestational diabetes and rosacea came to the hospital with chief complaint of right forearm pain, blisters redness and swelling and fever. She had visited urgent care and then ED for the same complaint in the last week. She was [facility], and later visited ED who prescribed her antibiotics. She was not getting any better which brought her to the ED and got admitted. She has received IV abx so far, and has undergone a punch biopsy of the lesiuon by the surgical team (results pending). Her arm rashes seem to be subsiding today, and her generalized rash appear to be better too. Problem list: #Skin lesion with bullae; likely allergic reaction (allergic contact dermatitis) , other DDx include: cellulitis, pemphigoid spectrum diseases, VZV, lyme (less likely) Plan * Continue gen med admission while closely following skin changes and vitals. * Follow Blood cultures 2 and watch for fever * Continue IV abx (Unasyn), pending final report * IV Benadryl for itching when necessary, helping * Patient has received multiple abx so far, and one of the differentials have been drug eruption as well. Will watch closely on that. * Dermatology follow up today mentioned to continue with Clobetasol, as she might have been allergic to Triamcinolone group of steroids. Continue abx for now to just to cover for secondary infections. Abx therapy to be guided by ID service. * Wait for skin biopsy results, try getting prelim report if possible * DVT prophylaxis with alps * Patient is full code Update: She had a maculo-papular rash over her torso which was itchy later during the day, the pictures of which was sent to the strategic partner development manager Dr Jaime with patient's permission and also discussed with Dr Arrieta. This looks like a drug rash and the fact that we are stopping her abx will help it and she can use clobetasol over the rash as well. Benadryl prescribed for itching sensation and rash. Claritin prescribed to be taken in the morning for the same, to avoid sedation. Problem List: 1. Contact dermatitis 2. Cellulitis Pain Ratin Pain Location: headache Pain Goal: Pain 4 or less Pain Plan: prn Tomorrow's Labs & Rationales: - Fransico Arrieta MD 02/28/18 2203: Attending Review Statement Attending Statement Attending Statement: examined this patient, discuss w/resident/PA/TEACHER COUNSELOR, agreed w/resident/PA/TEACHER COUNSELOR, discussed with family, reviewed EMR data (avail), discussed with nursing, discussed with case mgmt, amended to note Attending Assessment/Plan: The patient was seen and discussed with house staff, nursing, and case management. Does have pruritic maculopapular rash that appears to be drug reaction (?Unasyn). Responding to benadryl. ID, Dermatology and Pathology input appreciated. Path suggests contact dermatitis (final will be available once processed at [place]). OK to discharge to home today with steroid cream, claritin, and benadryl. Will have follow-up with Dermatology as OP. Will not send home on antibiotics.
[2018-02-28 08:16] LABS: ABSOLUTE BASOPHIL COUNT 0 /CUMM (0.0-0.2); ABSOLUTE EOSINOPHIL COUNT 0.6 /CUMM (0.0-0.7); ABSOLUTE LYMPH COUNT 1.8 /CUMM (1.2-3.4); ABSOLUTE MONOCYTE COUNT 0.5 /CUMM (0.10-0.60); BASOPHIL % 0.4 % (0.0-2.0); EOSINOPHIL % 6.8 % (0-5); GRANULOCYTE % 67.1 % (42.2-75.2); HEMATOCRIT 36.4 % (37-47); MEAN CORPUSCULAR HGB 25.1 PG (27.0-31.0); MEAN CORPUSCULAR VOLUME 76.1 FL (81.0-99.0); MEAN PLATELET VOLUME 7.7 FL (7.4-10.4); PLATELET COUNT 291 /CUMM (130-400); RBC DISTRIBUTION WIDTH 14.5 % (11.5-14.5); RED BLOOD CELL CT 4.78 /CUMM (4.20-5.40)
--- NOTE | 2018-02-28 10:37 | Cons- Infect Disease ---
General Information and HPI Consulting Request Date of Consult: 02/28/18 Requested By: Fransico Arrieta MD Reason for Consult: Rule out cellulitis Source of Information: patient, family, old records History of Present Illness: This is a 37-year-old woman with a history of rosacea, who developed a pruritic rash on her right forearm and left antecubital area 1 week prior to admission, treated with steroid cream without relief, with the development of blisters on the right forearm, treated with Keflex at a walk-in clinic 4 days prior to admission without improvement, seen in the emergency room 3 days prior to admission with persistent symptoms, found to be afebrile, given Ceftriaxone and discharged on prednisone and Bactrim, admitted on February 25 after returning to the emergency room with a fever of 101, associated with headache and fatigue. On admission she was afebrile. Laboratory data revealed a white blood cell count of 10,000, BUN/creatinine 15 and 0.7, with normal liver enzymes. She was given Vancomycin, Cefazolin and Clindamycin but was changed to Unasyn on the next today. She did undergo a skin biopsy on her right upper extremity on February 27. She has remained afebrile and her white blood cell count has remained normal since admission. She developed a pruritic rash on her back and left upper extremity on February 27 but her right upper extremity rash has improved. She does not report any tick bites and reports no new exposures prior to the onset of the rash. Of note her son was recently treated for contact dermatitis. Allergies/Medications Allergies: Coded Allergies: bee pollen (ITCHING 02/22/18) pineapple (ITCHING 02/22/18) Home Med List: Hydroxyzine Hydrochloride (Atarax) 25 MG TAB 1 TAB PO Q6P PRN ITCHING Prednisone 10 MG TABLET 1 TAB PO DAILY DERMATITIS THEN TAKE 3 TABS FOR 3 DAYS THEN TAKE 2 TABS FOR 3 DAYS THEN TAKE 1 TAB FOR 3 DAYS Sulfamethoxazole/Trimethoprim (Bactrim Ds Tablet) 800 MG-160 MG TABLET 1 TAB PO BID CELLULITIS Past History Travel History Traveled to [place] past 21 day No Medical History Blood Transfusion Hx: No Neurological: NONE EENT: NONE Cardiovascular: NONE Respiratory: NONE Gastrointestinal: NONE Hepatic: NONE Renal: NONE Musculoskeletal: NONE Psychiatric: NONE Endocrine: NONE Blood Disorders: NONE Cancer(s): NONE 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 Home Smoking Status: Never Smoked Review of Systems Review of Systems All Other Systems: Reviewed and Negative Exam & Diagnostic Data Last 24 Hrs of Vital Signs/I&O Vital Signs Date Time Temp Pulse Resp B/P B/P Pulse O2 O2 Flow FiO2 Mean Ox Delivery Rate 02/28 0630 97.6 78 20 120/85 98 Room Air 02/27 2234 98.3 71 18 142/88 98 Room Air 02/27 1429 97.8 88 20 122/67 98 Room Air Intake & Output 02/28 1600 02/28 0800 02/28 0000 Intake Total 700 730 Output Total Balance 700 730 Intake, IV 220 250 Intake, Oral 480 480 Number 0 0 Bowel Movements Physical Exam Other Physical Findings: She is awake and alert in no acute distress. She is afebrile. Skin reveals rosacea on her face; mild erythema over the upper chest; a blotchy rash on her back; left antecubital patch with surrounding erythema; right upper extremity with 2 separate areas of ruptured bullae with mild surrounding erythema. HEENT exam is negative. Neck is supple with no adenopathy. Lungs are clear. Heart regular rhythm with no murmur. Abdomen is soft, nontender with positive bowel sounds. Back no CVA tenderness. Extremities no cyanosis, clubbing or edema. Neuro is without focality. Last 24 Hours of Lab Results: Laboratory Tests 02/28 0705 Chemistry Sodium (137 - 145 mmol/L) 139 Potassium (3.5 - 5.1 mmol/L) 4.2 Chloride (98 - 107 mmol/L) 106 Carbon Dioxide (22 - 30 mmol/L) 24 Anion Gap (5 - 16) 10 BUN (7 - 17 mg/dL) 13 Creatinine (0.5 - 1.0 mg/dL) 0.7 Estimated GFR (>60 ml/min) > 60 BUN/Creatinine Ratio (7 - 25 %) 18.6 Hematology CBC w Diff NO MAN DIFF REQ WBC (4.8 - 10.8 /CUMM) 9.0 RBC (4.20 - 5.40 /CUMM) 4.78 Hgb (12.0 - 16.0 G/DL) 12.0 Hct (37 - 47 %) 36.4 L MCV (81.0 - 99.0 FL) 76.1 L MCH (27.0 - 31.0 PG) 25.1 L MCHC (33.0 - 37.0 G/DL) 33.0 RDW (11.5 - 14.5 %) 14.5 Plt Count (130 - 400 /CUMM) 291 MPV (7.4 - 10.4 FL) 7.7 Gran % (42.2 - 75.2 %) 67.1 Lymphocytes % (20.5 - 51.1 %) 19.7 L Monocytes % (1.7 - 9.3 %) 6.0 Eosinophils % (0 - 5 %) 6.8 H Basophils % (0.0 - 2.0 %) 0.4 Absolute Granulocytes (1.4 - 6.5 /CUMM) 6.0 Absolute Lymphocytes (1.2 - 3.4 /CUMM) 1.8 Absolute Monocytes (0.10 - 0.60 /CUMM) 0.5 Absolute Eosinophils (0.0 - 0.7 /CUMM) 0.6 Absolute Basophils (0.0 - 0.2 /CUMM) 0 Last 24 Hours of Justen Results: Blood cultures 2 February 25 negative Assessment/Plan Assessment/Plan Impression: This is a 37-year-old woman with a history of rosacea, admitted on February 25 with a pruritic bullous rash, primarily on her right forearm, not responsive to empiric antibiotics and a steroid cream as an outpatient, found on admission to be afebrile with a normal white blood cell count, treated with empiric antibiotics, without any clear response, and with the development of another rash on her back, torso and left upper extremity. Her rash is not suggestive of cellulitis and suspect that this represents a noninfectious process, possibly contact dermatitis, as suggested by Dermatology, who has seen her today. Lyme disease was considered, given the appearance of bullae in the middle of the 2 localized eruptions on her right forearm, but this would be quite unusual for Lyme and, given the development of a pruritic rash on her back, feel this is unlikely. At this point I feel that the antibiotics can be discontinued. A skin biopsy was done yesterday and the results are pending. Suggestion: 1. Follow-up skin biopsy results 2. Further evaluation and management of her rash per Dermatology 3. Follow-up Lyme titer 4. Discontinue Unasyn and follow off antibiotics pending above Consult Acknowledgment - Thank you for your consult request.
[2018-02-28] MEDS ORDERED: TEMOVATE15 GM TOP (11:32)
[2018-02-28] MEDS ORDERED: BENADRYL25 MG PO (12:00)
[2018-02-28] MEDS ORDERED: NYSTATIN15 G1 TOP (12:00)
[2018-02-28] MEDS ORDERED: PROBIOTIC & AC1 EACH PO (12:00)
--- NOTE | 2018-02-28 12:08 | Patient Discharge Instructions ---
Discharge Instructions General Discharge Information You were seen/treated for: allergic contact dermatitis, possibly from steroid (triamcinolone group) Special Instructions: Please follow up with Dr Daren Jaime (slot ambassador) within a week after discharge. Please follow up with your PCP after your discharge. You appearantly are allergic to trimacinolone group of steroids, so please inform your PCP/other providers of the new allergy notice. You might not be allergic to Clobetasol or its group of staroids. Please return to emergency if symptoms worsen. Diet Continue normal diet: Yes Recommended Diet: Heart Healthy Activity Full Activity/No Limits: Yes Acute Coronary Syndrome Inclusion Criteria At DC or during hospital stay patient has or had the following: ACS DIAGNOSIS No Discharge Core Measures Meds if any: Prescribed or Continued at Discharge Meds if any: NOT Prescribed or Continued at Discharge Congestive Heart Failure Inclusion Criteria At DC or during hospital stay patient has or had the following: CHF DIAGNOSIS No Discharge Core Measures Meds if any: Prescribed or Continued at Discharge Meds if any: NOT Prescribed or Continued at Discharge Cerebrovascular accident Inclusion Criteria At DC or during hospital stay patient has or had the following: CVA/TIA Diagnosis No Discharge Core Measures Meds if any: Prescribed or Continued at Discharge Meds if any: NOT Prescribed or Continued at Discharge Venous thromboembolism Inclusion Criteria VTE Diagnosis No VTE Type NONE VTE Confirmed by (Test) NONE Discharge Core Measures - Per Current guidelines, there needs to be overlap - treatment for the first 5 days of Warfarin therapy. - If discharged on Warfarin prior to 5 days of - overlap therapy, the patient will need to be - assessed for post discharge needs including - *Post discharge parental anticoagulation - *Warfarin and/or parental anticoagulation education - *Follow up date to check INR post discharge At least 5 days overlap therapy as Inpatient No Meds if any: Prescribed or Continued at Discharge Note: Overlap Therapy is Warfarin and Anticoagulant Meds if any: NOT Prescribed or Continued at Discharge
[2018-02-28] MEDS ORDERED: CLARITIN10 M1 PO (13:39)
[2018-02-28 13:53] VITALS: BP 117/55
--- NOTE | 2018-02-28 15:47 | Discharge Summary ---
See Addendum Visit Information Visit Dates Admission Date: 02/25/18 Discharge Date: 02/28/18 Hospital Course Course Attending Physician: Fransico Arrieta MD [facility]: 37-year-old lady with past medical history of gestational diabetes and rosacea came to the hospital with chief complaint of right forearm pain, blisters redness and swelling and fever. She had visited urgent care and then ED for the same complaint in the last week. She was on [facility], and later visited ED who prescribed her antibiotics. She was not getting any better which brought her to the ED and got admitted. She has received IV abx too to cover her for the cellulitis-like picture, but without any help. She has undergone a punch biopsy of the lesion by the surgical team ( final results pending). Canal Structure Operator was consulted who suggested allergic contact dermatitis and prescribed/suggested Clobetasol cream. This seemd to control her inflammation to much exptent. Her arm rashes seem to be subsiding on the day of discharge and her generalized rash appear to be better too. ID service was also consulted to guide the management, who suggested no cellulitis and thus no antibiotics for now. Of note, she developed a maculo-papular rash over her torso which was also itchy later on the day of discharge, the pictures of which was sent to the event promotions coordinator Dr Jaime with patient's permission and also discussed with attending physician Dr Arrieta. This was consistent with drug rash and the antibiotics were to be stopped today anyway, whould help it. She can use clobetasol over the rash too. PO Benadryl has been prescribed for itching sensation and rash. PO Claritin has been prescribed to be taken in the morning for the same, to avoid sedation. This is in addition to the clobetasol cream that she has been prescribed. She has to stop steroids, hydroxyzine, and antibiotics that she was taking prior to her admission. She also needs to follow up with the event promotions coordinator Dr Jaime after her discharge , who will also receive the skin pathology final report. Allergies: Coded Allergies: bee pollen (ITCHING 02/22/18) pineapple (ITCHING 02/22/18) Significant Procedures: Skin punch biopsy done on 02/26/18 Pertinent Lab Results: Laboratory Tests 02/28 02/27 0705 0730 Chemistry Sodium (137 - 145 mmol/L) 139 139 Potassium (3.5 - 5.1 mmol/L) 4.2 4.1 Chloride (98 - 107 mmol/L) 106 105 Carbon Dioxide (22 - 30 mmol/L) 24 22 Anion Gap (5 - 16) 10 12 BUN (7 - 17 mg/dL) 13 11 Creatinine (0.5 - 1.0 mg/dL) 0.7 0.7 Estimated GFR (>60 ml/min) > 60 > 60 BUN/Creatinine Ratio (7 - 25 %) 18.6 15.7 Hematology CBC w Diff NO MAN DIFF REQ NO MAN DIFF REQ WBC (4.8 - 10.8 /CUMM) 9.0 9.4 RBC (4.20 - 5.40 /CUMM) 4.78 4.65 Hgb (12.0 - 16.0 G/DL) 12.0 11.8 L Hct (37 - 47 %) 36.4 L 35.2 L MCV (81.0 - 99.0 FL) 76.1 L 75.7 L MCH (27.0 - 31.0 PG) 25.1 L 25.4 L MCHC (33.0 - 37.0 G/DL) 33.0 33.6 RDW (11.5 - 14.5 %) 14.5 14.5 Plt Count (130 - 400 /CUMM) 291 274 MPV (7.4 - 10.4 FL) 7.7 7.8 Gran % (42.2 - 75.2 %) 67.1 76.1 H Lymphocytes % (20.5 - 51.1 %) 19.7 L 12.1 L Monocytes % (1.7 - 9.3 %) 6.0 5.9 Eosinophils % (0 - 5 %) 6.8 H 5.5 H Basophils % (0.0 - 2.0 %) 0.4 0.4 Absolute Granulocytes (1.4 - 6.5 /CUMM) 6.0 7.1 H Absolute Lymphocytes (1.2 - 3.4 /CUMM) 1.8 1.1 L Absolute Monocytes (0.10 - 0.60 /CUMM) 0.5 0.5 Absolute Eosinophils (0.0 - 0.7 /CUMM) 0.6 0.5 Absolute Basophils (0.0 - 0.2 /CUMM) 0 0 02/26 02/26 02/25 0748 0600 1905 Chemistry Sodium (137 - 145 mmol/L) 139 Potassium (3.5 - 5.1 mmol/L) 4.1 Chloride (98 - 107 mmol/L) 107 Carbon Dioxide (22 - 30 mmol/L) 22 Anion Gap (5 - 16) 11 BUN (7 - 17 mg/dL) 14 Creatinine (0.5 - 1.0 mg/dL) 0.8 Estimated GFR (>60 ml/min) > 60 BUN/Creatinine Ratio (7 - 25 %) 17.5 Lactic Acid Cancelled Hematology CBC w Diff NO MAN DIFF REQ WBC (4.8 - 10.8 /CUMM) 9.1 RBC (4.20 - 5.40 /CUMM) 4.67 Hgb (12.0 - 16.0 G/DL) 11.7 L Hct (37 - 47 %) 35.5 L MCV (81.0 - 99.0 FL) 76.0 L MCH (27.0 - 31.0 PG) 25.1 L MCHC (33.0 - 37.0 G/DL) 33.0 RDW (11.5 - 14.5 %) 14.6 H Plt Count (130 - 400 /CUMM) 307 MPV (7.4 - 10.4 FL) 8.0 Gran % (42.2 - 75.2 %) 59.4 Lymphocytes % (20.5 - 51.1 %) 27.3 Monocytes % (1.7 - 9.3 %) 6.8 Eosinophils % (0 - 5 %) 5.9 H Basophils % (0.0 - 2.0 %) 0.6 Absolute Granulocytes (1.4 - 6.5 /CUMM) 5.4 Absolute Lymphocytes (1.2 - 3.4 /CUMM) 2.5 Absolute Monocytes (0.10 - 0.60 /CUMM) 0.6 Absolute Eosinophils (0.0 - 0.7 /CUMM) 0.5 Absolute Basophils (0.0 - 0.2 /CUMM) 0.1 Serology Lyme Disease Antibody (RATIO) 0.22 02/25 1715 Chemistry Sodium (137 - 145 mmol/L) 139 Potassium (3.5 - 5.1 mmol/L) 4.6 Chloride (98 - 107 mmol/L) 103 Carbon Dioxide (22 - 30 mmol/L) 21 L Anion Gap (5 - 16) 15 BUN (7 - 17 mg/dL) 15 Creatinine (0.5 - 1.0 mg/dL) 0.7 Estimated GFR (>60 ml/min) > 60 BUN/Creatinine Ratio (7 - 25 %) 21.4 Glucose (65 - 99 mg/dL) 112 H Lactic Acid (0.7 - 2.1 mmol/L) 1.4 Calcium (8.4 - 10.2 mg/dL) 10.4 H Total Bilirubin (0.2 - 1.3 mg/dL) 0.5 AST (14 - 36 U/L) 17 ALT (9 - 52 U/L) 44 Alkaline Phosphatase (<127 U/L) 92 Total Protein (6.3 - 8.2 g/dL) 8.8 H Albumin (3.5 - 5.0 g/dL) 5.1 H Globulin (1.9 - 4.2 gm/dL) 3.7 Albumin/Globulin Ratio (1.1 - 2.2 %) 1.4 Hematology CBC w Diff NO MAN DIFF REQ WBC (4.8 - 10.8 /CUMM) 10.4 RBC (4.20 - 5.40 /CUMM) 5.64 H Hgb (12.0 - 16.0 G/DL) 14.1 Hct (37 - 47 %) 42.6 MCV (81.0 - 99.0 FL) 75.5 L MCH (27.0 - 31.0 PG) 25.0 L MCHC (33.0 - 37.0 G/DL) 33.2 RDW (11.5 - 14.5 %) 14.9 H Plt Count (130 - 400 /CUMM) 394 MPV (7.4 - 10.4 FL) 8.1 Gran % (42.2 - 75.2 %) 85.9 H Lymphocytes % (20.5 - 51.1 %) 12.4 L Monocytes % (1.7 - 9.3 %) 1.1 L Eosinophils % (0 - 5 %) 0.5 Basophils % (0.0 - 2.0 %) 0.1 Absolute Granulocytes (1.4 - 6.5 /CUMM) 8.9 H Absolute Lymphocytes (1.2 - 3.4 /CUMM) 1.3 Absolute Monocytes (0.10 - 0.60 /CUMM) 0.1 Absolute Eosinophils (0.0 - 0.7 /CUMM) 0 Absolute Basophils (0.0 - 0.2 /CUMM) 0 Disposition Summary Disposition Principal Diagnosis: allergic contact dermatitis, possibly from steroid (triamcinolone group) Additional Diagnosis: h/o rosacea not active, and gestational diabetes Discharge Disposition: home or self care Discharge Instructions General Discharge Information Code Status: Full Code Patient's Diet: Heart healthy Patient's Activity: As tolerated Follow-Up Instructions/Appts: Please follow up with Dr Daren Jaime (event promotions coordinator) within a week after discharge. Please follow up with your PCP after your discharge. You appearantly are allergic to trimacinolone group of steroids, so please inform your PCP/other providers of the new allergy notice. You might not be allergic to Clobetasol or its group of steroids. Please return to emergency if symptoms worsen. Medications at Discharge Discharge Medications: Stop taking the following medications: Prednisone (Prednisone) 10 MG TABLET ORAL DAILY Qty = 18 Hydroxyzine Hydrochloride (Atarax) 25 MG TAB ORAL EVERY SIX HOURS NEEDED as needed for ITCHING Qty = 20 Sulfamethoxazole/Trimethoprim (Bactrim Ds Tablet) 800 MG-160 MG TABLET ORAL TWICE DAILY Qty = 20 Start taking the following new medications: Clobetasol Propionate (Temovate) 0.05 % OINT...G. 1 Application On the skin TWICE DAILY Qty = 1 Refills = 1 Comments: Last Taken: 02/28/18 Time: 8:00 AM Lactobac Cmb #3/Fos/Pantethine (Probiotic & Acidophilus Cap) 300MM-250 CAPSULE 1 Capsule ORAL TWICE DAILY Qty = 10 No Refills Comments: Last Taken: 02/28/18 Time: 9:00 AM Nystatin (Nystatin) 100,000 UNIT/GRAM CREAM..G. 1 Application On the skin TWICE DAILY Qty = 1 Refills = 1 Comments: Last Taken: 02/28/18 Time: 9:00 AM diphenhydrAMINE HCl (Benadryl) 25 MG CAP 1 Capsule ORAL THREE TIMES DAILY as needed for ITCHING RASH Qty = 30 Refills = 1 Comments: Last Taken: 02/28/18 Time: 2:30 PM Loratadine (Claritin) 10 MG TABLET 1 Tablet ORAL DAILY Qty = 15 No Refills Comments: NOT GIVEN IN HOSPITAL Copies To: Shefali Osorio DO, MD,Daren Attending MD Review Statement Documenting Attending: Fransico Arrieta MD Other Findings: The patient was seen and discussed with house staff. Agree with the plan of care as outlined. Will have follow-up with dermatology as an outpatient.
== END 2018-02-28 15:30 | DRG 607 ==
LOC: ERH 12:59 → ERHI 20:02 → 2NB 20:02 → ENRESERV 21:31 → 2NB 22:15
PROVIDERS: Internal Medicine; Physician Assistant; Student in an Organized Health Care Education/Training Program
PROC: 0HBDXZX Excision of Right Lower Arm Skin, External Approach, Diagnostic (ICD-10-PCS; principal; 2018-02-28)
DX: L25.9 Unspecified contact dermatitis, unspecified cause (principal); L27.1 Localized skin eruption due to drugs and medicaments taken internally; Z79.52 Long term (current) use of systemic steroids; R23.8 Other skin changes; T36.0X5A Adverse effect of penicillins, initial encounter
CPT/HCPCS: 2NBSP; 86618; 36415; 36592; 82436; 87040; 88305; 96374; J0690; J1200; J1650; J3370; J7040